=== PATIENT | female | born 1995 | race Caucasian/White ===

== ENCOUNTER 2017-06-15 13:35 | Emergency (ER) | payer BC, OTHER ==
[2017-06-15] MEDS ORDERED: LORazepam TAB(*) 1 MG PO ONE ×3 (14:53→20:54)
--- NOTE | 2017-06-15 14:54 | ED ---
Psychiatric Complaint - HPI Summary HPI Summary: 22 female presents to ED with mother with complaints of increased anxiety, depression and panic attack after a recent break up with her significant other. States she recently was following up with therapist for increasing depression/ anxiety over the past month. Was placed on zoloft 5 days ago. Has been doing well until last night when her significant other broke up with her. Is a college student at [employer] and has also had some increased stress while at school. Denies any other complaints. No chest pain, trouble breathing or vomiting. Has had decreased appetite. Denies alcohol or drug use. Denies suicidal/homicidal thoughts. States she "just needs help". Does have outpatient therapist. No hallucinations or hearing voices. No other PMHx. - History Of Current Complaint Chief Complaint: EDPsychosocial Time Seen by Provider: 06/15/17 13:52 Hx Obtained From: Patient, Family/Roof Service Technician - mother Onset/Duration: Sudden Onset Timing: Intermittent Episode Lasting Severity Initially: Mild Severity Currently: Severe Character: Depressed, Anxious Aggravating Factor(s): Recent Stress - relationship issues Alleviating Factor(s): Nothing Associated Signs And Symptoms: Positive: Appetite Change Related History: Positive For: Prior Psychiatric Issues - being seen for depression/anxiety Has Suicidal: Denies: Thoughts, With A Plan Has Homicidal: Denies: Thoughts, With A Plan Recent Stressor(s): relationship break up - Allergies/Home Medications Allergies/Adverse Reactions: Allergies Allergy/AdvReac Type Severity Reaction Status Date / Time No Known Allergies Allergy Verified 06/15/17 14:02 Home Medications: Home Medications Norgestimate-Ethinyl Estradiol [Ortho-Cyclen] 1 tab PO DAILY 06/15/17 [History Confirmed 06/15/17] Sertraline* [Zoloft*] 25 mg PO DAILY 06/15/17 [History Confirmed 06/15/17] hydrOXYzine HCL TAB* [Atarax 10 MG TAB*] 10 mg PO QID PRN 06/15/17 [History Confirmed 06/15/17] PMH/Surg Hx/FS Hx/Imm Hx Endocrine/Hematology History: Denies: Hx Diabetes Cardiovascular History: Denies: Hx Hypertension, Hx Pacemaker/ICD Respiratory History: Denies: Hx Asthma History: Denies: Hx Renal Disease Sensory History: Denies: Hx Hearing Aid Psychiatric History: Denies: Hx Panic Disorder - Surgical History Surgery Procedure, Year, and Place: n/a - Immunization History Immunizations Up to Date: Yes Infectious Disease History: No Infectious Disease History: Denies: Traveled Outside the [place] in Last 30 Days - Family History Known Family History: Positive: None - Social History Alcohol Use: None Substance Use Type: Reports: None Smoking Status (MU): Never Smoked Tobacco Review of Systems Constitutional: Negative Cardiovascular: Negative Respiratory: Negative Musculoskeletal: Negative Positive: Anxious, Depressed All Other Systems Reviewed And Are Negative: Yes Physical Exam Triage Information Reviewed: Yes Vital Signs On Initial Exam: Initial Vitals Temp Pulse Resp BP Pulse Ox 98.1 F 77 17 118/80 99 06/15/17 13:46 06/15/17 13:46 06/15/17 13:46 06/15/17 13:46 06/15/17 13:46 Vital Signs Reviewed: Yes Appearance: Positive: Well-Appearing - tearful, depressed on exam, No Pain Distress, Well-Nourished Skin: Positive: Warm, Skin Color Reflects Adequate Perfusion, Dry. Negative: Cold, Numb, Cyanosis @, Pale, Erythema @ Head/Face: Positive: Normal Head/Face Inspection Eyes: Positive: Conjunctiva Clear ENT: Positive: Pharynx normal Neck: Positive: Supple, Nontender Respiratory/Lung Sounds: Positive: Clear to Auscultation, Breath Sounds Present. Negative: Rales, Rhonchi, Wheezes Cardiovascular: Positive: Normal, RRR, Pulses are Symmetrical in both Upper and Lower Extremities. Negative: Murmur, Rub Musculoskeletal: Positive: Normal, Strength/ROM Intact Neurological: Positive: Normal, Sensory/Motor Intact, Alert, Oriented to Person Place, Time Psychiatric: Positive: Anxious, Depressed. Negative: Affect/Mood Appropriate - flat affect, not very communicative Diagnostics - Vital Signs Vital Signs Temp Pulse Resp BP Pulse Ox 06/15/17 13:46 98.1 F 77 17 118/80 99 - Laboratory Result Diagrams: 06/15/17 15:20 06/15/17 15:20 Lab Statement: Any lab studies that have been ordered have been reviewed, and results considered in the medical decision making process. Course/Dx - Course Course Of Treatment: given ativan to help with anxiety/panic attack symptoms. had relief. normal physical exam and vitals otherwise. no other concerns. does not appear to be medical in etiology. appears to be under increased stress due to recent relationship troubles. patient was cleared for mental health labs and urine normal. no other complaints or concerns. patient was signed out to Duyen PULIDO at shift change pending mental health evaluation. Appears to need acute acting medication until zoloft takes effects to help with symptoms and close out patient follow up. - Differential Dx/Clinical Impression Differential Diagnosis/HQI/PQRI: Positive: Anxiety, Depression Provider Diagnosis: Anxiety, Depression, Mental health problem, Panic attack - Physician Notifications Discussed Care Of Patient With: [facility], signed out to Duyen Gupta at shift change Patient Is Medically Stable For: Psych Evaluation Discharge - Discharge Plan Condition: Stable Disposition: OTHER Discharge Disposition Comment: Signed out to Duyen PULIDO at shift change pending [facility] and dispo Referrals: [facility] - Raji JOHNSON [Primary Care Provider] -
[2017-06-15 15:33] LABS: ABS Basophils 0 10^3/ul (0-0.2); ABS Eosinophils 0 10^3/ul (0-0.6); ABS Lymphocytes 1.5 10^3/ul (1.0-4.8); ABS Monocytes 0.3 10^3/ul (0-0.8); ABS Neutrophils 4.5 10^3/ul (1.5-7.7); ABS Nucleated RBC 0 10^3/ul; Eosinophil % 0.4 % (0-6); Hematocrit 42 % (35-47); Hemoglobin 14.3 g/dl (12.0-16.0); Mean Corpuscular HGB Conc 34 g/dl (31-36); Mean Corpuscular Hemoglobin 33 pg (27-31); Mean Corpuscular Volume 96 fL (80-97); Mean Platelet Volume 9 um3 (7.4-10.4); Nucleated Red Blood Cells % 0; Platelet Count 201 10^3/ul (150-450); Red Blood Count 4.38 10^6/ul (4.0-5.4); Red Cell Distribution Width 12 % (10.5-15); White Blood Count 6.4 10^3/ul (3.5-10.8)
[2017-06-15 15:52] LABS: EGFR Non-African American 84.1 (>60)
[2017-06-15 16:23] LABS: Urine Appearance Cloudy; Urine Blood Negative (Negative); Urine Color Amber; Urine Ketones 1+ (Negative); Urine Protein 2+(100 mg/dL) (Negative); Urine Specific Gravity 1.027 (1.010-1.030); Urine Urobilinogen Negative (Negative)
--- NOTE | 2017-06-15 21:54 | PN ---
Progress Note - Progress Note Date of Service: 06/15/17 Note: Signed out by Yuliya Velasco PA-C at 5pm Constitutional: The patient denies fever, MERCADO, sweats or chills. HEENT: Head: The patient denies headaches or dizziness. Eyes: The patient denies diplopia, blurry vision, eye pain, eye discharge, photophobia. Cardiovascular: The patient denies chest pain, palpitations, syncope, night cramps, or orthostasis. Respiratory: The patient denies cough, sputum production, hemoptysis, dyspnea, wheezing. Gastrointestinal: The patient endorses nausea, without vomiting. Genitourinary: Patient denies dysuria. Muscles: The patient denies myalgia, strain or weakness. Joints: The patient denies arthralgia and/or arthritis. Psych: Extreme anxiety, depression, no suicidal thoughts, no homicidal thoughts Appearance: WDW, pleasant, but very anxious Skin: Soft dry skin, no lesions. Nailbeds pink with no cyanosis or clubbing. No petechia noted. Eyes: YENY, EOMI, Conjunctiva pink with no redness or exudates. Mouth: Dentition without lesions. Moist mucosa Neck: Full range of motion. Palpable thyroid. Trachea at midline. No lymphadenopathy. Pulm: Chest symmetrical expansion. No deformities on posterior chest wall. Lungs clear to auscultation and percussion, without adventitious sounds. CV: No JVD. No deformities on anterior chest wall. Heart sounds. RRR. Normal S1 and single S2. No S3, S4, rubs, or murmurs. Musculoskeletal: Flexion and extension of neck without limitations. ROM WNL in all extremities. No deformities noted. Pulses +2 bilaterally. Neuro: Motor strength is 5/5 in upper and lower extremities bilaterally. A&OX3 Psych: Logical, coherent, appears to be severely anxious and diaphoretic Patient appears to be extremely anxious on physical exam. I have offered her 1 mg Ativan. She accepts. I have also given her prescription for at home medication as well as an Ativan to dispense to home. She is to follow up immediately with her PCP and resources she is given as an outpatient. She states also she has early satiety and has been unable to eat due to her severe anxiety. I have offered her Zofran for her nausea, but she declines. Mother is at bedside and is offering support. Vital signs are stable on discharge. No signs of suicidal ideation and she denies such. No history SI or HI. After Dr. Eugene consulted, he agrees she is safe to go home. I agree with this plan and discharge. Disposition: Home Condition: Fair
[2017-06-15 22:51] VITALS: BP 122/83
== END 2017-06-15 22:52 | disposition home or self-care (01) ==
LOC: ED 13:35
DX: F41.9 Anxiety disorder, unspecified (principal); F32.9 Major depressive disorder, single episode, unspecified; F41.0 Panic disorder [episodic paroxysmal anxiety]
CPT/HCPCS: 36415; 80053; 80307; 80320; 80329; 81003; 81015; 84443; 85025; 87086; 99285; A9270-GY; G0480

== ENCOUNTER 2018-01-31 23:34 | Emergency (ER) | payer BC ==
[2018-01-31] MEDS ORDERED: NS 0.9% 1000 ML* 1,000 ML IV ONE (23:55)
--- NOTE | 2018-02-01 00:12 | ED ---
Substance Abuse/Use - HPI Summary HPI Summary: This pt is a 22 y/o female presenting to [facility] via EMS for possible overdose of prescription medications. Pt reports she had an anxiety attack today and took her medications. She states she took Ativan and hydroxyzine. Pt is unable to tell how much she took as she notes they are broken up in pieces. Pt states the reason why her Ativan is broken up is because it is never necessary for her to take a whole tablet and usually just takes 1/4 of it. Pt last took Ativan a few hours ago. Pt is also on Sertraline 75 mg, which she last took last evening on 01/30/18. Currently she reports feeling better. Denies SI thoughts, SI plan, HI thoughts, HI plan, depression. Denies chest pain, SOB, abd pain, nausea, vomiting. Per EMS, pt was at home with roommates when she had a panic attack and took her medications. EMS was called and they reported she was ok to stay home. Per EMS, pt's friends called back and told EMS that pt had taken more medications than pt had admitted to. Pt reports she does not get panic attacks very often. 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 - History Of Current Complaint Stated Complaint: POSSIBLE OVERDOSE Time Seen by Provider: 01/31/18 23:40 Hx Obtained From: Patient, EMS Onset/Duration of Drug/ETOH Abuse: Hours Ingestion History: Type/Name Of Drug - Ativan, hydroxyzine Overdose Characteristics: Oral Timing Of Abuse: Binge Use Severity Currently: None Character: Anxious - panic attack Aggravating Factor(s): Nothing Alleviating Factor(s): Nothing Associated Signs And Symptoms: Intentional Ingestion, Other: - NEG: chest pain, SOB, abd pain, nausea, vomiting - Allergies/Home Medications Allergies/Adverse Reactions: Allergies Allergy/AdvReac Type Severity Reaction Status Date / Time No Known Allergies Allergy Verified 01/31/18 23:43 PMH/Surg Hx/FS Hx/Imm Hx Endocrine/Hematology History: Denies: Hx Diabetes Cardiovascular History: Denies: Hx Hypertension, Hx Pacemaker/ICD Respiratory History: Denies: Hx Asthma History: Denies: Hx Renal Disease Sensory History: Denies: Hx Hearing Aid Psychiatric History: Denies: Hx Eating Disorder, Hx Panic Disorder, Hx of Violent Episodes Against Others - Surgical History Surgery Procedure, Year, and Place: n/a - Immunization History Date of Tetanus Vaccine: utd Date of Influenza Vaccine: none Infectious Disease History: No Infectious Disease History: Denies: Traveled Outside the [place] in Last 30 Days - Family History Known Family History: Negative: Cardiac Disease, Hypertension, Diabetes - Social History Occupation: Student - [employer] Alcohol Use: Rare Substance Use Type: Reports: None Smoking Status (MU): Never Smoked Tobacco Review of Systems Negative: Fever, Chills Negative: Chest Pain Negative: Shortness Of Breath Negative: Abdominal Pain, Vomiting, Nausea Psychological: Other - POS: panic attack Negative: Depressed, Other - SI, HI thoughts/plan All Other Systems Reviewed And Are Negative: Yes Physical Exam - Summary Physical Exam Summary: VITAL SIGNS: Reviewed. GENERAL: Patient is a well-developed and nourished female who is lying comfortable in the stretcher. Patient is not in any acute respiratory distress. HEAD AND FACE: No signs of trauma. No ecchymosis, hematomas or skull depressions. No sinus tenderness. EYES: PERRLA, EOMI x 2, No injected conjunctiva, no nystagmus. EARS: Hearing grossly intact. Ear canals and tympanic membranes are within normal limits. MOUTH: Oropharynx within normal limits. NECK: Supple, trachea is midline, no adenopathy, no JVD, no carotid bruit, no c- spine tenderness, neck with full ROM. CHEST: Symmetric, no tenderness at palpation LUNGS: Clear to auscultation bilaterally. No wheezing or crackles. CVS: Regular rate and rhythm, S1 and S2 present, no murmurs or gallops appreciated. ABDOMEN: Soft, non-tender. No signs of distention. No rebound no guarding, and no masses palpated. Bowel sounds are normal. EXTREMITIES: FROM in all major joints, no edema, no cyanosis or clubbing. NEURO: Alert and oriented x 3. No acute neurological deficits. Speech is normal and follows commands. Psychiatric : Patient seems upset, somewhat uncooperative, wants to leave. Patient denies suicidal or homicidal ideation. SKIN: Dry and warm Triage Information Reviewed: Yes Vital Signs On Initial Exam: Initial Vitals Temp Pulse Resp BP Pulse Ox 98.5 F 65 18 110/59 97 01/31/18 23:40 01/31/18 23:40 01/31/18 23:40 01/31/18 23:40 01/31/18 23:40 Vital Signs Reviewed: Yes Diagnostics - Vital Signs Vital Signs Temp Pulse Resp BP Pulse Ox 01/31/18 23:40 98.5 F 65 18 110/59 97 - Laboratory Result Diagrams: 02/01/18 00:26 02/01/18 00:26 Lab Statement: Any lab studies that have been ordered have been reviewed, and results considered in the medical decision making process. - EKG 01:02 Cardiac Rate: NL - at 66 bpm EKG Rhythm: Sinus Rhythm EKG Interpretation: Normal interval. No ischemic changes. Re-Evaluation - Re-Evaluation First Eval Re-Evaluation Time: 03:00 Comment: Pt is medically cleared for psych evaluation. Course/Dx - Course Assessment/Plan: Pt is a 22 y/o female who presents via EMS for possible overdose of prescription medications. Pt reports she had an anxiety attack today and took her medications. She states she took Ativan and hydroxyzine. Pt is unable to tell how much she took as she notes they are broken up in pieces. Pt states the reason why her Ativan is broken up is because it is never necessary for her to take a whole tablet and usually just takes 1/4 of it. Per EMS, pt was at home with roommates when she had a panic attack and took her medications. EMS was called and they reported she was ok to stay home. Per EMS, pt's friends called back and told EMS that pt had taken more medications than pt had admitted to. Pt currently reports feeling better. There was no benzodiazepines in urine. Pt is medically cleared for psych evaluation. Mental health cable former will come to the ED for an evaluation. Pt had a mental health evaluation and her case was reviewed by Dr. Louis, psychiatrist. Dr. Louis recommends to discharge the pt home with outpatient follow up with her therapist and psychiatrist. Dx: panic attack. - Diagnoses Provider Diagnoses: Panic attack Discharge - Sign-Out/Discharge Documenting (check all that apply): Patient Departure - Discharge home - Discharge Plan Condition: Stable Disposition: HOME Patient Education Materials: Depression (ED), Anxiety (ED), Panic Attack (ED) Referrals: Luther Travis [Other] (Please schedule an appointment to see your therapist at [facility], at your earliest convenience.) [facility] [Other] (Please schedule an appointment with your psychiatrist at [facility], at your earliest convenience.) [facility] Raji JOHNSON [Medical Doctor] - - Billing Disposition and Condition Condition: STABLE Disposition: Home - Attestation Statements Document Initiated by Jorge: Yes Documenting Scribe: Sandy Dowling Provider For Whom Jorge is Documenting (Include Credential): Shelby Archuleta MD Scribe Attestation: Sandy Rodriguez, scribed for Shelby Archuleta MD on 02/01/18 at 0608. Scribe Documentation Reviewed: Yes Provider Attestation: The documentation as recorded by the Sandy bertrand accurately reflects the service I personally performed and the decisions made by me, Shelby Archuleta MD
[2018-02-01] MEDS ORDERED: Haloperidol INJ IV/IM* 5 MG/ML AMP IM ONE (00:16)
[2018-02-01] MEDS ORDERED: hydrOXYzine IM* 50 MG/ML VIAL IM ONE (00:17)
[2018-02-01 00:57] LABS: ABS Basophils 0 10^3/ul (0-0.2); ABS Eosinophils 0.2 10^3/ul (0-0.6); ABS Lymphocytes 2.4 10^3/ul (1.0-4.8); ABS Monocytes 0.4 10^3/ul (0-0.8); ABS Neutrophils 3.1 10^3/ul (1.5-7.7); ABS Nucleated RBC 0 10^3/ul; Hematocrit 41 % (35-47); Hemoglobin 13.9 g/dl (12.0-16.0); Lymphocyte % 38.7 % (25-47); Mean Corpuscular HGB Conc 34 g/dl (31-36); Mean Corpuscular Hemoglobin 33 pg (27-31); Mean Corpuscular Volume 96 fL (80-97); Mean Platelet Volume 8.1 um3 (7.4-10.4); Nucleated Red Blood Cells % 0; Platelet Count 249 10^3/ul (150-450); Red Blood Count 4.24 10^6/ul (4.00-5.40); Red Cell Distribution Width 12 % (10.5-15); White Blood Count 6.2 10^3/ul (3.5-10.8)
[2018-02-01 01:15] LABS: EGFR Non-African American 103.3 (>60)
[2018-02-01 02:22] LABS: Urine Appearance Clear; Urine Blood Negative (Negative); Urine Color Yellow; Urine Ketones Negative (Negative); Urine Protein Negative (Negative); Urine Specific Gravity 1.011 (1.010-1.030); Urine Urobilinogen Negative (Negative)
[2018-02-01 04:17] VITALS: BP 91/56
== END 2018-02-01 04:15 | disposition home or self-care (01) ==
LOC: ED 23:34
DX: F41.0 Panic disorder [episodic paroxysmal anxiety] (principal)
CPT/HCPCS: 36415; 80053; 80307; 80320; 80329; 81003; 84443; 84702; 85025; 93005; 99284; G0480

== ENCOUNTER 2018-05-29 20:43 | Emergency (ER) | payer BC ==
[2018-05-29 21:02] VITALS: BP 117/73
--- NOTE | 2018-05-29 21:15 | UC ---
Skin Complaint HPI - HPI Summary HPI Summary: 23 yo female with concern of infection extensor aspect of left wrist Onset about a week ago worsening now left forearm a little tender no f/c no hx of MRSA - History of Current Complaint Chief Complaint: UCSkin Time Seen by Provider: 05/29/18 21:14 Stated Complaint: POSS INFECT.LT ARM Hx Obtained From: Patient Hx Last Menstrual Period: 05/15/18 Onset/Duration: Sudden Onset, Lasting Days - about 7 Timing: Constant Onset Severity: Mild Current Severity: Mild Pain Intensity: 2 Location: Other - aee image Character: Swelling, Pain, Redness, Raised Aggravating Factor(s): Touch Associated Signs & Symptoms: Positive: Negative - except tenderness. Negative: Vomiting, Numbness, Thirst, Diaphoresis, Weakness, Pallor, Shivering, Fever, Chills, Cough, Wheezing, Hoarseness, Throat Tightening, Rash, Lightheadedness, Syncope, Drainage, Bruising, Red Streaks, Joint Swelling - Allergy/Home Medications Allergies/Adverse Reactions: Allergies Allergy/AdvReac Type Severity Reaction Status Date / Time No Known Allergies Allergy Verified 01/31/18 23:43 Home Medications: Home Medications Ibuprofen [Advil] 200 mg PO ONCE PRN 05/29/18 [History Confirmed 05/29/18] Tri-Seclan Lo Control 1 tab PO DAILY 05/29/18 [History Confirmed 05/29/18] PMH/Surg Hx/FS Hx/Imm Hx Previously Healthy: Yes - Surgical History Surgical History: None Surgery Procedure, Year, and Place: n/a - Family History Known Family History: Positive: None Negative: Cardiac Disease, Hypertension, Diabetes - Social History Alcohol Use: Weekly Substance Use Type: Marijuana Smoking Status (MU): Never Smoked Tobacco Review of Systems All Other Systems Reviewed And Are Negative: Yes Constitutional: Positive: Negative Skin: Positive: Negative Eyes: Positive: Negative ENT: Positive: Negative Respiratory: Positive: Negative Cardiovascular: Positive: Negative Gastrointestinal: Positive: Negative Genitourinary: Positive: Negative Motor: Positive: Negative Neurovascular: Positive: Negative Musculoskeletal: Positive: Negative Neurological: Positive: Negative Psychological: Positive: Negative Physical Exam Triage Information Reviewed: Yes Appearance: Well-Appearing, No Pain Distress, Well-Nourished Vital Signs: Initial Vital Signs Temp 98.3 F 05/29/18 20:55 Pulse 85 05/29/18 20:55 Resp 18 05/29/18 20:55 BP 117/73 05/29/18 20:55 Pulse Ox 100 05/29/18 20:55 Vital Signs Reviewed: Yes Eyes: Positive: Conjunctiva Clear ENT: Negative: Nasal congestion, Nasal drainage, Tonsillar exudate, Trismus, Muffled voice, Hoarse voice Neck: Positive: Supple, Nontender, No Lymphadenopathy Respiratory: Positive: Lungs clear. Negative: No respiratory distress, No accessory muscle use, Respiratory distress Cardiovascular: Positive: RRR, No Murmur Musculoskeletal: Positive: ROM Intact, No Edema Neurological: Positive: Alert Psychological Exam: Normal Skin Exam: Normal Images Hands: 1 - eraser sized eschar/surrounded by bright right of erthyema ( quatered sized ), hint of the start of an ascending lymphangiitis. no fluctuance Course/Dx - Diagnoses Provider Diagnosis: Infection of left wrist Discharge - Sign-Out/Discharge Documenting (check all that apply): Patient Departure All imaging exams completed and their final reports reviewed: No Studies - Discharge Plan Condition: Stable Disposition: HOME Prescriptions: DOXYcycline CAP(*) [DOXYcycline 100MG CAP(*)] 100 mg PO BID #14 cap Patient Education Materials: Cellulitis (ED) Referrals: No Primary Care Phys,NOPCP [Primary Care Provider] - Additional Instructions: As discussed: warm/soapy compresses left wrist 3x day gently dry apply thin film of bactroban oint bandaid doxycycline 100 mg twice daily TAKE WITH FOOD Take with lg glass of water avoid sun exposure TO ER IF SYMPTOMS DRAMATICALLY WORSEN a culture is pending if you are not noticing improvement within 24 -48 hours I suggest you get recheck I suspect a staph infection and MRSA is a possibility - Billing Disposition and Condition Condition: STABLE Disposition: Home
[2018-05-29] MEDS ORDERED: Mupirocin 2% OINT* TUBE TOPICAL ONE (21:39)
[2018-05-29] MEDS ORDERED: DOXYcycline CAP(*) 100 MG PO ONE (21:40)
--- NOTE | 2018-05-31 17:36 | UC ---
- Progress Note Progress Note: 05/31/2018 wound culture : positive for S. Aureus positive Pt Rx Doxycycline PO Sensitivity reports still pending No change Abbey Wagner PA-C Course/Dx - Diagnoses Provider Diagnoses: Infection of left wrist Discharge - Sign-Out/Discharge Documenting (check all that apply): Patient Departure - D/C home All imaging exams completed and their final reports reviewed: No Studies - Discharge Plan Condition: Stable Disposition: HOME Prescriptions: DOXYcycline CAP(*) [DOXYcycline 100MG CAP(*)] 100 mg PO BID #14 cap Patient Education Materials: Cellulitis (ED) Referrals: No Primary Care Phys,NOPCP [Primary Care Provider] - Additional Instructions: As discussed: warm/soapy compresses left wrist 3x day gently dry apply thin film of bactroban oint bandaid doxycycline 100 mg twice daily TAKE WITH FOOD Take with lg glass of water avoid sun exposure TO ER IF SYMPTOMS DRAMATICALLY WORSEN a culture is pending if you are not noticing improvement within 24 -48 hours I suggest you get recheck I suspect a staph infection and MRSA is a possibility - Billing Disposition and Condition Condition: STABLE Disposition: Home
== END 2018-05-29 22:03 | disposition home or self-care (01) ==
LOC: UCEAST 20:43
DX: L03.114 Cellulitis of left upper limb (principal)
CPT/HCPCS: 87070; 87205; 87640; 87641; 99213; A9270-GY; G0463

== ENCOUNTER 2018-07-26 17:29 | Emergency (ER) | payer BC ==
--- NOTE | 2018-07-26 17:58 | ED ---
Neurological HPI - HPI Summary HPI Summary: A 23 y/o female presents to [facility] with a chief complaint of visual changes since December 2017. She reports that in December of 2017 she would have SOB and tunnel vision upon exertion. She then stopped running, as she used to run track at [employer], and it was better. But now walking to class her vision is changed, with certain spots in her vision appearing different. She then had an MRI and reports a cyst on her brain. She reports nausea and headaches. At triage she rated her pain as a 6/10 in severity. 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 She denies abdominal pain, swelling in her legs or urinary symptoms. - History of Current Complaint Chief Complaint: EDHeadache Stated Complaint: CYST ON HER BRAIN PER PT Time Seen by Provider: 07/26/18 17:35 Hx Obtained From: Patient Hx Last Menstrual Period: 05/15/18 Onset/Duration: Gradual Onset, Started weeks ago, Still Present Timing: Intermittent Episodes Lasting: - started out upon exertion, now when walking and even when sitting Onset Severity: Moderate Current Severity: Moderate Pain Intensity: 6 Pain Scale Used: 0-10 Numeric Character: Visual Changes Aggravating: Exertion Alleviating: Nothing Associated Signs and Symptoms: Positive: Visual Changes, Nausea/Vomiting - nausea, Shortness of Breath. Negative: Fever - Allergy/Home Medications Allergies/Adverse Reactions: Allergies Allergy/AdvReac Type Severity Reaction Status Date / Time No Known Allergies Allergy Verified 07/26/18 17:36 PMH/Surg Hx/FS Hx/Imm Hx Endocrine/Hematology History: Denies: Hx Diabetes Cardiovascular History: Denies: Hx Hypertension, Hx Pacemaker/ICD Respiratory History: Denies: Hx Asthma History: Denies: Hx Renal Disease Sensory History: Denies: Hx Hearing Aid Psychiatric History: Denies: Hx Eating Disorder, Hx Panic Disorder, Hx of Violent Episodes Against Others - Surgical History Surgery Procedure, Year, and Place: DENIES - Immunization History Date of Tetanus Vaccine: utd Date of Influenza Vaccine: none Infectious Disease History: No Infectious Disease History: Denies: Traveled Outside the [place] in Last 30 Days - Family History Known Family History: Negative: Cardiac Disease, Hypertension, Diabetes - Social History Alcohol Use: Weekly Substance Use Type: Reports: Marijuana Smoking Status (MU): Never Smoked Tobacco Review of Systems Negative: Fever Positive: Shortness Of Breath Positive: Nausea Positive: no symptoms reported Negative: Edema Positive: Headache All Other Systems Reviewed And Are Negative: Yes Physical Exam - Summary Physical Exam Summary: Constitutional: Well-developed, Well-nourished, Alert. (-) Distressed Skin: Warm, Dry HENT: Normocephalic; Atraumatic Eyes: Conjunctiva normal, Right upper and lower visual field deficit in right side. Neck: Musculoskeletal ROM normal neck. (-) JVD, (-) Stridor, (-) Tracheal deviation Cardio: Rhythm regular, rate normal, Heart sounds normal; Intact distal pulses; The pedal pulses are 2+ and symmetric. Radial pulses are 2+ and symmetric. (-) Murmur Pulmonary/Chest wall: Effort normal. (-) Respiratory distress, (-) Wheezes, (-) Rales Abd: Soft, (-) tenderness, (-) Distension, (-) Guarding, (-) Rebound Musculoskeletal: (-) Edema Lymph: (-) Cervical adenopathy Neuro: Alert, Oriented x3, Right upper and lower visual field deficit in right side. Psych: Mood and affect Normal Triage Information Reviewed: Yes Vital Signs On Initial Exam: Initial Vitals Temp Pulse Resp BP Pulse Ox 98.5 F 94 14 131/75 99 07/26/18 17:36 07/26/18 17:36 07/26/18 17:36 07/26/18 17:36 07/26/18 17:36 Vital Signs Reviewed: Yes Diagnostics - Vital Signs Vital Signs Temp Pulse Resp BP Pulse Ox 07/26/18 17:36 98.5 F 94 14 131/75 99 - Laboratory Result Diagrams: 07/26/18 19:25 07/26/18 19:25 Lab Statement: Any lab studies that have been ordered have been reviewed, and results considered in the medical decision making process. - CT Brain MRI CT Interpretation Completed By: Radiologist Summary of CT Findings: No significant enhancement. 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 Neoplasia in particular pineocytoma, cannot be entirely excluded. 6-12 month. followup may be considered to assess stability. ED physician has reviewed this imaging report. Re-Evaluation - Re-Evaluation First Eval Re-Evaluation Time: 21:22 Change: Unchanged Comment: Discussed results and plan for discharge and follow up with neurosurgery. Course/Dx - Course Course Of Treatment: A 23 y/o female presents to [facility] with a chief complaint of visual changes since December 2017. She reports that in December of 2017 she would have SOB and tunnel vision upon exertion. She then stopped running, as she used to run track at [employer], and it was better. But now walking to class her vision is changed, with certain spots in her vision appearing different. She then had an MRI and reports a cyst on her brain. The physical exam revealed Right upper and lower visual field deficit in right side. Bloodwork and chemistries obtained and are WNL. Discussed case with Dr. Ly who recommended an MRI. In the ED course the patient was given Gadoteridol IV. Brain MRI impression: No significant enhancement. 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 Neoplasia in particular pineocytoma, cannot be entirely excluded. 6-12 month. followup may be considered to assess stability. The patient will be discharged and follow up with neurosurgery on 07/29/18. She is agreeable with this plan. - Differential Dx Differential Diagnoses Neuro: Positive: Headache - blurred vision - Diagnoses Provider Diagnoses: Blurred vision - Physician Notifications Discussed Care Of Patient With: Guillaume Ly Time Discussed With Above Provider: 18:15 Instructed by Provider To: Other - will take a look at the patient's report. Discharge - Sign-Out/Discharge Documenting (check all that apply): Patient Departure - DC Patient Received Moderate/Deep Sedation with Procedure: No - Discharge Plan Condition: Good Disposition: HOME Patient Education Materials: Blurred Vision (ED) Print Language: [place] CITIZ[place] Referrals: Thu Mejia PA [Physician Take Out Waiter] - [facility] - Skyler Herring MD [Medical Doctor] - - Billing Disposition and Condition Condition: GOOD Disposition: Home - Attestation Statements Document Initiated by Scribe: Yes Documenting Scribe: Shaun Collier Provider For Whom Jorge is Documenting (Include Credential): Princess Reveles MD Scribe Attestation: Michael, patti Lamed for Princess Narvaez MD on 07/26/18 at [id number]. Scribe Documentation Reviewed: Yes Provider Attestation: The documentation as recorded by the Shaun bertrand accurately reflects the service I personally performed and the decisions made by me, Princess Narvaez MD Status of Scribe Document: Viewed Consult Consult: At 18:[address] Ly, who recommended MRI.
[2018-07-26 19:33] LABS: ABS Basophils 0 10^3/ul (0-0.2); ABS Eosinophils 0.2 10^3/ul (0-0.6); ABS Lymphocytes 2.5 10^3/ul (1.0-4.8); ABS Monocytes 0.5 10^3/ul (0-0.8); ABS Neutrophils 4.4 10^3/ul (1.5-7.7); ABS Nucleated RBC 0 10^3/ul; Eosinophil % 2.5 %; Hematocrit 40 % (33-41); Hemoglobin 13.9 g/dL (12.0-16.0); Lymphocyte % 33.3 %; Mean Corpuscular HGB Conc 35 g/dL (31-36); Mean Corpuscular Hemoglobin 33 pg (27-31); Mean Corpuscular Volume 96 fL (80-97); Mean Platelet Volume 8.2 fL (7.4-10.4); Nucleated Red Blood Cells % 0.1; Platelet Count 267 10^3/uL (150-450); Red Blood Count 4.22 10^6 /uL (3.70-4.87); Red Cell Distribution Width 12 % (10.5-15); White Blood Count 7.6 10^3/uL (3.5-10.8)
[2018-07-26 19:40] LABS: INR 0.85 (0.77-1.02)
[2018-07-26 19:50] LABS: ALT 11 U/L (7-52); AST 18 U/L (13-39); Albumin 4.4 g/dL (3.2-5.2); Albumin/Globulin Ratio 1.6 (1-3); Alkaline Phosphatase 54 U/L (34-104); Anion Gap 6 mmol/L (2-11); BUN/Creatinine Ratio 14.9 (8-20); Blood Urea Nitrogen 11 mg/dL (6-24); CO2 Carbon Dioxide 30 mmol/L (22-32); Calcium 9.7 mg/dL (8.6-10.3); Chloride 101 mmol/L (101-111); EGFR African American 119.9 (>60); EGFR Non-African American 99.1 (>60); Globulin 2.8 g/dL (2-4); Glucose 86 mg/dL (70-100); Potassium 3.9 mmol/L (3.5-5.0); Sodium 137 mmol/L (135-145); Total Protein 7.2 g/dL (6.4-8.9)
[2018-07-26 19:57] LABS: HCG Pregnancy < 0.60 mIU/mL
[2018-07-26] MEDS ORDERED: Gadoteridol* (CONTRAST) 279.3 MG/ML 10 ML IV ONE (20:09)
[2018-07-26 21:37] VITALS: BP 112/67
== END 2018-07-26 21:38 | disposition home or self-care (01) ==
LOC: ED 17:29
DX: H53.8 Other visual disturbances (principal); G93.89 Other specified disorders of brain
CPT/HCPCS: 36415; 70552; 80053; 84702; 85025; 85610; 99283; A9579